=== PATIENT | female | born 1965 | race Caucasian/White ===

== ENCOUNTER 2018-02-06 15:09 | Emergency (ER) | payer OTHER ==
[2018-02-06 15:18] VITALS: BP 136/85; PULSE 98; TEMP 98.6; BMI 34.5
[2018-02-06] MEDS ORDERED: DOXYCYCLINE HYCLATE 100 MG CAPSULE PO ONE ×2 (15:52→16:00)
--- NOTE | 2018-02-06 15:58 | PDOC ---
History of Present Illness - General History Source: Patient Exam Limitations: No Limitations - History of Present Illness Initial Comments: 02/06/18 16:12 The patient is a 52 year old female, with no significant PMH who presents to the emergency department s/p bite on the left hand from a stray cat. Patient reports the cat was captured by Oliva Cabreravalentin, from the [facility], who apparently has already contacted the health department to test for rabies. The patient has not other complaints. Allergies: NKA Past surgical history: None reported. Social history: No reported alcohol, drug or cigarette use. PCP: Dr. Guadalupe <Elen Recinos - Last Filed: 02/06/18 16:12> <Stacey Ying - Last Filed: 02/06/18 17:00> - General Chief Complaint: Bite Stated Complaint: CAT BITE TO LEFT HAND Past History <Elen Recinos - Last Filed: 02/06/18 16:12> - Past Medical History COPD: No Disorders: Yes (ACID REFLUX) Thyroid Disease: Yes - Surgical History Appendectomy: Yes - Suicide/Smoking/Psychosocial Hx Smoking Status: No Smoking History: Never smoked Have you smoked in the past 12 months: No Number of Cigarettes Smoked Daily: 0 Information on smoking cessation initiated: No Hx Alcohol Use: No Drug/Substance Use Hx: Yes Hx Substance Use Treatment: No <Stacey Ying - Last Filed: 02/06/18 17:00> - Past Medical History Allergies/Adverse Reactions: Allergies Allergy/AdvReac Type Severity Reaction Status Date / Time Penicillins Allergy Verified 02/06/18 15:12 Sulfa (Sulfonamide Allergy Verified 02/06/18 15:12 Antibiotics) Home Medications: Ambulatory Orders Bupropion HCl [Wellbutrin Xl -] 450 mg PO DAILY 02/06/18 Doxycycline Hyclate 200 mg PO BID #10 tablet. 02/06/18 E2/E3/Test.5:2:1.5 Mg 1 tab PO ASDIR 02/06/18 Famotidine [Pepcid] 40 mg PO DAILY 02/06/18 Progesterone, Micronized [Progesterone] 275 mg PO DAILY 02/06/18 Sertraline HCl [Zoloft] 200 mg PO DAILY 02/06/18 Thyroid [W[place]rop Thyroid] 15 mg PO DAILY 02/06/18 Review of Systems - Review of Systems Able to Perform ROS?: Yes Comments:: 02/06/18 16:12 ADULT ROS GENERAL/CONSTITUTIONAL: No fever or chills. No weakness. HEAD, EYES, EARS, NOSE AND THROAT: No change in vision. No ear pain or discharge. No sore throat. CARDIOVASCULAR: No chest pain or shortness of breath. RESPIRATORY: No cough, wheezing, or hemoptysis. GASTROINTESTINAL: No nausea, vomiting, diarrhea or constipation. GENITOURINARY: No dysuria, frequency, or change in urination. MUSCULOSKELETAL: No joint or muscle swelling or pain. No neck or back pain. SKIN: (+) Estelle bite to the left hand. NEUROLOGIC: No headache, vertigo, loss of consciousness, or change in strength/ sensation. ENDOCRINE: No increased thirst. No abnormal weight change. HEMATOLOGIC/LYMPHATIC: No anemia, easy bleeding, or history of blood clots. ALLERGIC/IMMUNOLOGIC: No hives or skin allergy. <Elen Recinos - Last Filed: 02/06/18 16:12> *Physical Exam - Vital Signs Last Vital Signs Temp Pulse Resp BP Pulse Ox 98.6 F 98 H 18 136/85 99 02/06/18 15:09 02/06/18 15:09 02/06/18 15:09 02/06/18 15:09 02/06/18 15:09 - Physical Exam Comments: 02/06/18 16:09 ADULT EXAM GENERAL: Awake, alert, and fully oriented, in no acute distress LUNGS: Breath sounds equal, clear to auscultation bilaterally. No wheezes, and no crackles HEART: Regular rate and rhythm, normal S1 and S2, no murmurs, rubs or gallops EXTREMITIES: Left hand- (+) two, less than 1 cm puncture wounds to the left hand with minimal active bleeding. Mild tenderness. No surrounding erythema. FROM to the fingers. Sensation is intact. All other extremities have normal range of motion, no edema. No clubbing or cyanosis. No cords, erythema, or tenderness NEUROLOGICAL: Cranial nerves II through XII grossly intact. Normal speech, normal gait SKIN: Warm, Dry, normal turgor. <Elen Recinos - Last Filed: 02/06/18 16:12> - Vital Signs Last Vital Signs Temp Pulse Resp BP Pulse Ox 98.6 F 98 H 18 136/85 99 02/06/18 15:09 02/06/18 15:09 02/06/18 15:09 02/06/18 15:09 02/06/18 15:09 <Stacey Ying - Last Filed: 02/06/18 17:00> Medical Decision Making - Medical Decision Making 02/06/18 16:48 pt presents to the ED complaining of cat bite to the hand by stray cat. Cat has been captured and will be sent to the health department for testing. Case discussed with Romy, the nurse from [facility] , and she states that post exposure prophylaxis is not necessary at this time because the animal is captured. Patient is pen allergic. Will treat with doxycycline (second line as per koko) and advise patient to monitor for signs of infection. wound irrigated for 5 min with tap water in the ED. <Stacey Ying - Last Filed: 02/06/18 17:00> *DC/Admit/Observation/Transfer <Elen Recinos - Last Filed: 02/06/18 16:12> - Discharge Dispostion Decision to Admit order: No <Stacey Ying - Last Filed: 02/06/18 17:00> Diagnosis at time of Disposition: Cat bite Qualifiers: Encounter type: initial encounter Qualified Code(s): W55.01XA - Bitten by cat, initial encounter - Discharge Dispostion Disposition: HOME Condition at time of disposition: Good - Prescriptions Prescriptions: Doxycycline Hyclate 200 mg PO BID #10 tablet.dr - Referrals Referrals: Humberto Guadalupe MD [Primary Care Provider] - - Patient Instructions Printed Discharge Instructions: DI for Animal Bites Additional Instructions: the department of health will call you and follow up with you after the animal is tested for rabies. You do not need to start injections unless the animal tests positive. Return to the ED for spreading redness or swelling, fever, painful hand, other new or worsening symptoms. Make sure that you take the antibiotic until it is all gone. - Post Discharge Activity
[2018-02-06] MEDS ORDERED: DIPHTH,PERTUSS(ACELL),TET 0.5 ML DISP.SYRIN IM ONE (16:00)
[2018-02-06] MEDS ORDERED: BACITRACIN 15 GM TUBE TOPICAL OINTMENT TP SCH (22:00)
== END 2018-02-06 16:50 | disposition home or self-care (01) ==
LOC: FER 15:09
DX: S61.452A Open bite of left hand, initial encounter (principal); W55.01XA Bitten by cat, initial encounter; Y92.89 Other specified places as the place of occurrence of the external cause; Y93.9 Activity, unspecified
CPT/HCPCS: 90715; 99283-25